=== PATIENT | female | born 1990 | race Two or more races ===

== ENCOUNTER 2017-01-15 16:03 | Inpatient (IN) ==
[2017-01-15] MEDS: LACTATED RINGERS 1,000 ML IV SCH ×2 (16:30→19:30)
[2017-01-15] MEDS ORDERED: BUTORPHANOL 2 MG/ML VIAL IV PRN (16:37)
[2017-01-15] MEDS ORDERED: ONDANSETRON 4 MG/2 ML VIAL IV PRN (16:37)
[2017-01-15] MEDS ORDERED: MEPERIDINE 50 MG/1 ML VIAL IM PRN (16:37)
[2017-01-15] MEDS ORDERED: AMPICILLIN INJ 2,000 MG in SODIUM CHLORIDE 0.9% 50 ML IV ONE (16:39)
[2017-01-15] MEDS ORDERED: AMPICILLIN 2,000 MG VIAL ONE (16:43)
[2017-01-15 16:56] LABS: Basophils % 0.2 % (0.0-0.8); Eosinophils % 0.1 % (0.00-10.9); Hematocrit 34.4 VOL% (35.7-47.0); Hemoglobin 11.5 GM/DL (12.0-16.0); Immature Granulocytes Absolute 0.18 #; Lymphocytes # 2.8 10*3/uL (1.4-4.0); Lymphocytes % 14.7 % (21.3-54.2); Mean Corpuscular HGB Conc 33.4 GM/DL (32-36); Mean Corpuscular Hemoglobin 30 PG (27-34); Mean Corpuscular Volume 88.4 FL (87-102); Mean Platelet Volume 9.6 FL (9.6-12.0); Monocytes # 1.6 10*3/uL (0.11-0.8); Monocytes % 8.3 % (1.7-12.7); Neutrophils # 14.2 10*3/uL (1.4-7.4); Neutrophils % 75.7 % (38.7-73.9); Platelet Count 271 T/CUMM (130-400); Red Blood Count 3.89 MC/CUMM (3.8-5.5); White Blood Count 18.7 T/CUMM (4-12)
[2017-01-15] MEDS ORDERED: PROMETHAZINE 25 MG/1 ML VIAL IM ONE (17:16)
[2017-01-15] MEDS ORDERED: ePHEDrine 50 MG/ML AMP IV PRN (17:16)
[2017-01-15] MEDS ORDERED: FAMOTIDINE 20 MG/2 ML VIAL IV ONE (17:16)
[2017-01-15] MEDS ORDERED: CITRIC ACID/SODIUM CITRATE 30 ML UDCUP PO ONE (17:16)
[2017-01-15] MEDS ORDERED: diphenhydrAMINE 50 MG/1 ML VIAL IV PRN ×2 (17:16)
[2017-01-15] MEDS ORDERED: hydrOXYzine HCL 25 MG/1 ML VIAL IM PRN (17:16)
[2017-01-15] MEDS ORDERED: LACTATED RINGERS 1,000 ML IV ONE (17:16)
[2017-01-15 17:24] LABS: Albumin 2.7 G/DL (3.4-5.0); Bilirubin,Total 0.5 MG/DL (0.2-1.0); Calcium 9.3 MG/DL (8.5-10.1); Potassium 3.6 MMOL/L (3.5-5.1); Total Protein 7.7 G/DL (6.4-8.3)
[2017-01-15] MEDS ORDERED: fentaNYL 2 MCG/ROPIV 0.2% EPID 150 ML EPIDURAL SCH (17:30)
[2017-01-15] MEDS ORDERED: OXYTOCIN/LR 20 UNIT/1,000 ML BAG IV PRN (19:47)
[2017-01-15] MEDS ORDERED: AMPICILLIN INJ 1,000 MG in SODIUM CHLORIDE 0.9% 50 ML IV SCH (21:00)
[2017-01-15 22:53] LABS: Cord Arterial Blood HCO3 20.9 MMOL/L
[2017-01-15 22:57] LABS: Cord Venous Blood HCO3 22.9 MMOL/L; Cord Venous Blood PCO2 44.1 MMHG; Cord Venous Blood PO2 33.5
[2017-01-15] MEDS ORDERED: ACETAMINOPHEN 500 MG TABLET PO PRN (23:03)
[2017-01-16] MEDS ORDERED: ONDANSETRON 4 MG/2 ML VIAL IV PRN (00:25)
[2017-01-16] MEDS ORDERED: ACETAMINOPHEN 325 MG TABLET PO PRN (00:25)
[2017-01-16] MEDS ORDERED: LACTATED RINGERS 1,000 ML IV SCH (00:25)
[2017-01-16] MEDS ORDERED: BISACODYL 10 MG SUPP RECTAL PRN (00:25)
[2017-01-16] MEDS: IBUPROFEN 800 MG TABLET PO PRN ×3 (00:40→22:16)
[2017-01-16] MEDS: MAGNESIUM HYDROXIDE SUSP 30 ML UDCUP PO PRN ×2 (01:28→22:13)
[2017-01-16] MEDS ORDERED: AMPICILLIN INJ 1,000 MG in SODIUM CHLORIDE 0.9% 50 ML IV SCH (01:30)
[2017-01-16 03:55] LABS: Basophils % 0.1 % (0.0-0.8); Eosinophils % 0.1 % (0.00-10.9); Hematocrit 27.9 VOL% (35.7-47.0); Hemoglobin 9.6 GM/DL (12.0-16.0); Immature Granulocytes % 1.1 %; Immature Granulocytes Absolute 0.24 #; Lymphocytes # 2.7 10*3/uL (1.4-4.0); Mean Corpuscular HGB Conc 34.4 GM/DL (32-36); Mean Corpuscular Hemoglobin 30 PG (27-34); Mean Corpuscular Volume 86.6 FL (87-102); Mean Platelet Volume 9.7 FL (9.6-12.0); Monocytes # 1.7 10*3/uL (0.11-0.8); Monocytes % 7.9 % (1.7-12.7); Neutrophils # 16.3 10*3/uL (1.4-7.4); Neutrophils % 77.8 % (38.7-73.9); Platelet Count 206 T/CUMM (130-400); Red Blood Count 3.22 MC/CUMM (3.8-5.5)
[2017-01-16 03:56] LABS: Apearance,Urine CLEAR (Clear); Bacteria,Urine Occasional /HPF (Few); Bilirubin,Urine Negative (Negative); Blood, Urine Moderate mg/dL (Negative); Glucose,Urine (UA) Negative (Negative); Ketones,Urine Negative (Negative); Mucus,Urine Occasional /LPF (Occasional); Nitrite,Urine Negative (Negative); Protein,Urine Negative; RBC,Urine 33 /HPF (0-4); Urine Color Yellow (Yellow); Urine Urobilinogen < 2.0 EU/DL (0.2-1.0); WBC,Urine 4 /HPF (0-6)
[2017-01-16 06:17] LABS: Band Neutrophils 10 % (0-10); Lymphocytes 15 % (20-55); Myelocytes 2 %; Platelet Estimate Normal; Segmented Neutrophils 72 % (50-85); Total Cells Counted 100
[2017-01-16] MEDS: MULTIVITAMIN (PRENATAL) TABLET PO SCH (08:40)
[2017-01-16] MEDS: DOCUSATE SODIUM 100 MG CAPSULE PO SCH ×2 (08:40→22:07)
[2017-01-16] MEDS: IRON (CARBONYL)/VIT C/B12/FA TABLET PO SCH (12:01)
[2017-01-17 07:49] VITALS: BP 88/59
[2017-01-17] MEDS: DOCUSATE SODIUM 100 MG CAPSULE PO SCH ×2 (07:54→09:21)
[2017-01-17] MEDS: MULTIVITAMIN (PRENATAL) TABLET PO SCH ×2 (07:54→09:21)
[2017-01-17] MEDS: IRON (CARBONYL)/VIT C/B12/FA TABLET PO SCH ×2 (07:54→09:21)
[2017-01-17] MEDS: IBUPROFEN 800 MG TABLET PO PRN (07:54)
[2017-01-17] MEDS: MAGNESIUM HYDROXIDE SUSP 30 ML UDCUP PO PRN (07:55)
[2017-01-17] MEDS ORDERED: DIPH/TET/ACEL PERT BOOSTER VACCINE 0.5 ML VIAL IM ONE (10:18)
== END 2017-01-17 11:55 | disposition home or self-care (01) | DRG 560 ==
LOC: N.LDOUT 16:03 → N.LD 16:05 → N.OB 01-16 00:10
PROVIDERS: ADMIT Obstetrics & Gynecology; ATTEND Obstetrics & Gynecology

== ENCOUNTER 2018-03-20 18:33 | Inpatient (IN) ==
[2018-03-20 19:03] LABS: Basophils % 0.2 % (0.0-0.8); Eosinophils # 0.1 10*3/uL (0.0-0.87); Eosinophils % 1.3 % (0.00-10.9); Hematocrit 41.7 VOL% (35.7-47.0); Hemoglobin 13.6 GM/DL (12.0-16.0); Immature Granulocytes % 0.3 %; Immature Granulocytes Absolute 0.03 #; Lymphocytes # 4.6 10*3/uL (1.4-4.0); Lymphocytes % 44.7 % (21.3-54.2); Mean Corpuscular HGB Conc 32.6 GM/DL (32-36); Mean Corpuscular Hemoglobin 29 PG (27-34); Mean Corpuscular Volume 90.3 FL (87-102); Mean Platelet Volume 10.5 FL (9.6-12.0); Monocytes # 0.6 10*3/uL (0.11-0.8); Neutrophils # 4.9 10*3/uL (1.4-7.4); Neutrophils % 47.5 % (38.7-73.9); Platelet Count 242 T/CUMM (130-400); Red Blood Count 4.62 MC/CUMM (3.8-5.5); Red Cell Distribution Width 12.7 % (9.3-17.3); White Blood Count 10.3 T/CUMM (4-12)
[2018-03-20 19:37] LABS: Alanine Aminotransferase 20 U/L (13-56); Albumin 3.6 G/DL (3.4-5.0); Alkaline Phosphatase 106 U/L (45-117); Amylase 55 U/L (25-115); Aspartate Amino Transferase 15 U/L (0-37); Bilirubin,Total < 0.39 MG/DL (0.2-1.0); Blood Urea Nitrogen 19 MG/DL (7-18); Calcium 8.9 MG/DL (8.5-10.1); Glucose 112 MG/DL (74-106); Potassium 3.6 MMOL/L (3.5-5.1); Sodium 136 MMOL/L (136-145); Total Protein 8.1 G/DL (6.4-8.3)
[2018-03-20 19:42] LABS: Apearance,Urine CLEAR (Clear); Bacteria,Urine Occasional /HPF (Few); Bilirubin,Urine Negative (Negative); Blood, Urine Negative (Negative); Glucose,Urine (UA) Negative (Negative); Ketones,Urine Negative (Negative); Mucus,Urine Occasional /LPF (Occasional); Nitrite,Urine Negative (Negative); Protein,Urine Negative; RBC,Urine 4 /HPF (0-4); Squamous Epithelial Cell,Urine Occasional /HPF (0-10); Urine Color Yellow (Yellow); Urine Specific Gravity 1.028 (1.001-1.035); Urine Urobilinogen < 2.0 EU/DL (0.2-1.0); WBC,Urine 1 /HPF (0-6)
[2018-03-20] MEDS ORDERED: ACETAMINOPHEN 325 MG TABLET PO PRN ×3 (20:32→20:48)
[2018-03-20] MEDS ORDERED: ONDANSETRON 4 MG/2 ML VIAL IV PRN ×2 (20:39→20:48)
[2018-03-20] MEDS ORDERED: PIPERACILLIN/TAZOBACTAM 3,375 MG in SODIUM CHLORIDE 0.9% 100 ML IV SCH (21:00)
[2018-03-20] MEDS ORDERED: DEXTROSE 5% NACL 0.45% 1,000 ML IV SCH ×3 (21:00)
[2018-03-20] MEDS: PIPERACILLIN/TAZOBACTAM 3,375 MG in SODIUM CHLORIDE 0.9% 100 ML IV SCH (21:05)
[2018-03-21] MEDS: PIPERACILLIN/TAZOBACTAM 3,375 MG in SODIUM CHLORIDE 0.9% 100 ML IV SCH ×3 (04:50→22:42)
[2018-03-21] MEDS: ONDANSETRON 4 MG/2 ML VIAL IV PRN ×2 (08:11→17:42)
[2018-03-21] MEDS ORDERED: PANTOPRAZOLE 40 MG TABLET PO SCH ×2 (09:00)
[2018-03-21] MEDS: PANTOPRAZOLE 40 MG TABLET PO SCH (09:06)
[2018-03-21] MEDS: LACTATED RINGERS 1,000 ML IV SCH ×2 (10:45→17:41)
[2018-03-21] MEDS ORDERED: LIDOCAINE 1%/EPI INJ 20 ML VIAL ONE (19:20)
[2018-03-21] MEDS ORDERED: BUPIVACAINE 0.25% /EPI 10 ML VIAL ONE (19:20)
[2018-03-21] MEDS ORDERED: PROPOFOL 200 MG/20 ML VIAL IV ONE (21:33)
[2018-03-21] MEDS ORDERED: SEVOFLURANE 1 UNIT/15 MINUTE INH ONE (21:33)
[2018-03-21] MEDS ORDERED: LACTATED RINGERS 1,000 ML IV ONE (21:34)
[2018-03-21] MEDS ORDERED: ACETAMINOPHEN 1,000 MG/100 ML VIAL IV ONE (21:34)
[2018-03-21] MEDS ORDERED: fentaNYL 100 MCG/2 ML VIAL ONE (21:34)
[2018-03-21] MEDS ORDERED: ROCURONIUM 100 MG/10 ML VIAL IV ONE (21:34)
[2018-03-21] MEDS ORDERED: GLYCOPYRROLATE 0.4 MG/2 ML VIAL ONE (21:34)
[2018-03-21] MEDS ORDERED: NEOSTIGMINE 10 MG/10 ML VIAL ONE (21:34)
[2018-03-21] MEDS ORDERED: ONDANSETRON 4 MG/2 ML VIAL ONE ×2 (21:34→21:36)
[2018-03-21] MEDS ORDERED: MIDAZOLAM 2 MG/2 ML VIAL ONE (21:34)
[2018-03-21] MEDS ORDERED: DEXAMETHASONE 10 MG/1 ML VIAL ONE (21:34)
[2018-03-21] MEDS ORDERED: KETOROLAC 30 MG/1 ML VIAL ONE (21:34)
[2018-03-21] MEDS ORDERED: MEPERIDINE 25 MG/1 ML VIAL ONE (21:35)
[2018-03-21] MEDS ORDERED: ONDANSETRON 4 MG/2 ML VIAL IV PRN (21:47)
[2018-03-21] MEDS ORDERED: MEPERIDINE 25 MG/1 ML VIAL IV PRN (21:47)
[2018-03-21] MEDS ORDERED: KETOROLAC 30 MG/1 ML VIAL IV ONE (22:46)
[2018-03-21] MEDS: MORPHINE 4 MG/1 ML VIAL IV PRN (23:05)
[2018-03-22] MEDS: LACTATED RINGERS 1,000 ML IV SCH ×3 (04:15→19:32)
[2018-03-22] MEDS: PIPERACILLIN/TAZOBACTAM 3,375 MG in SODIUM CHLORIDE 0.9% 100 ML IV SCH ×3 (04:50→21:08)
[2018-03-22] MEDS: KETOROLAC 15 MG/1 ML VIAL IV SCH ×4 (04:51→22:45)
[2018-03-22] MEDS: ONDANSETRON 4 MG/2 ML VIAL IV PRN ×2 (04:56→19:29)
[2018-03-22] MEDS: MORPHINE 4 MG/1 ML VIAL IV PRN ×2 (04:57→19:30)
[2018-03-22] MEDS: PANTOPRAZOLE 40 MG TABLET PO SCH (08:39)
[2018-03-23] MEDS: ONDANSETRON 4 MG/2 ML VIAL IV PRN (01:15)
[2018-03-23] MEDS: MORPHINE 4 MG/1 ML VIAL IV PRN (01:16)
[2018-03-23] MEDS: LACTATED RINGERS 1,000 ML IV SCH ×3 (02:57→10:00)
[2018-03-23] MEDS: PIPERACILLIN/TAZOBACTAM 3,375 MG in SODIUM CHLORIDE 0.9% 100 ML IV SCH (05:06)
[2018-03-23] MEDS: KETOROLAC 15 MG/1 ML VIAL IV SCH ×2 (05:07→10:58)
[2018-03-23] MEDS: PANTOPRAZOLE 40 MG TABLET PO SCH (08:13)
[2018-03-23] MEDS ORDERED: MAGNESIUM HYDROXIDE SUSP 30 ML UDCUP PO ONE (09:11)
[2018-03-23 12:17] VITALS: BP 108/66
== END 2018-03-23 12:59 | disposition home or self-care (01) | DRG 263 ==
LOC: N.ED 18:33 → N.EDINP 20:48 → N.3E 21:24
PROVIDERS: ADMIT Surgery; ATTEND Surgery
PROC: LAPCHOL (2018-03-21 20:20)

== ENCOUNTER 2019-09-25 16:22 | Inpatient (IN) ==
[2019-09-25] MEDS ORDERED: MEPERIDINE 50 MG/1 ML VIAL IV PRN (17:05)
[2019-09-25] MEDS ORDERED: ACETAMINOPHEN 325 MG TABLET PO PRN (17:05)
[2019-09-25] MEDS ORDERED: BUTORPHANOL 2 MG/ML VIAL IV PRN (17:05)
[2019-09-25 17:26] LABS: Basophils % 0.2 % (0.0-0.8); Eosinophils # 0.1 10*3/uL (0.0-0.87); Eosinophils % 0.5 % (0.00-10.9); Hematocrit 27.9 VOL% (35.7-47.0); Immature Granulocytes % 1.5 %; Lymphocytes # 2.7 10*3/uL (1.4-4.0); Lymphocytes % 20.6 % (21.3-54.2); Mean Corpuscular HGB Conc 32.3 GM/DL (32-36); Mean Corpuscular Volume 92.4 FL (87-102); Mean Platelet Volume 9.3 FL (9.6-12.0); Monocytes % 9.4 % (1.7-12.7); Neutrophils % 67.8 % (38.7-73.9); Platelet Count 200 T/CUMM (130-400); Red Blood Count 3.02 MC/CUMM (3.8-5.5)
[2019-09-25] MEDS ORDERED: MAGNESIUM SULF RIDER 100 ML IV ONE (17:39)
[2019-09-25 17:45] LABS: Albumin 2.2 G/DL (3.4-5.0); Bilirubin,Total 0.4 MG/DL (0.2-1.0); Calcium 8.4 MG/DL (8.5-10.1); Osmolality,Calculated 273.5 MOS/KG (273-304); Total Protein 6.7 G/DL (6.4-8.3)
[2019-09-25] MEDS ORDERED: MAGNESIUM SULF DRIP 40 GM/1,000 ML ML IV SCH (18:00)
[2019-09-25] MEDS: LACTATED RINGERS 1,000 ML IV SCH (18:08)
[2019-09-25] MEDS: ONDANSETRON 4 MG/2 ML VIAL IV PRN (18:12)
[2019-09-25] MEDS: AMPICILLIN INJ 2,000 MG in SODIUM CHLORIDE 0.9% 100 ML IV SCH (18:15)
[2019-09-25] MEDS: BETAMETH SODIUM PHOS/ACETATE 30 MG/5 ML VIAL IM SCH (18:18)
[2019-09-25 18:24] LABS: Barbiturates Screen,Urine Negative (Negative); Benzodiazepines Screen,Urine Negative (Negative); Cannabinoid Screen,Urine Positive (Negative); Opiate Screen,Urine Negative (Negative); Phencyclidine Screen,Urine Negative (Negative)
[2019-09-25 18:38] LABS: Amorphous Crystals,Urine Occasional /HPF (Few); Bilirubin,Urine Negative (Negative); Blood, Urine Small mg/dL (Negative); Glucose,Urine (UA) Negative (Negative); Ketones,Urine Negative (Negative); Mucus,Urine Many /LPF (Occasional); Nitrite,Urine Negative (Negative); Protein,Urine 30 MG/DL; RBC,Urine 5 /HPF (0-4); Squamous Epithelial Cell,Urine Occasional /HPF (0-10); Urine Appearance Slightly Hazy (Clear); Urine Color Amber (Yellow); Urine Specific Gravity 1.026 (1.001-1.035); WBC,Urine 22 /HPF (0-6)
[2019-09-25 18:43] LABS: RPR Confirm - Less than 1 yr REACTIVE (Nonreactive)
[2019-09-25] MEDS: ERYTHROMYCIN INJ 500 MG in SODIUM CHLORIDE 0.9% 100 ML IV SCH (19:10)
[2019-09-25] MEDS ORDERED: FAMOTIDINE 20 MG/2 ML VIAL IV ONE (19:28)
[2019-09-25] MEDS ORDERED: NALOXONE 0.4 MG/ML VIAL IV PRN (19:28)
[2019-09-25] MEDS ORDERED: LACTATED RINGERS 1,000 ML IV PRN (19:28)
[2019-09-25] MEDS ORDERED: CITRIC ACID/SODIUM CITRATE 30 ML UDCUP PO ONE (19:28)
[2019-09-25] MEDS: fentaNYL 2 MCG/ROPIV 0.2% EPID 100 ML EPIDURAL SCH (20:13)
[2019-09-25] MEDS: ePHEDrine 50 MG/ML VIAL IV PRN ×3 (20:17→20:28)
[2019-09-25] MEDS ORDERED: BICILLIN LA 1,200,000 UNIT/2 ML SYRINGE IM ONE ×3 (21:00→21:30)
[2019-09-25] MEDS ORDERED: BICILLIN LA 2,400,000 UNIT/4 ML SYRINGE IM ONE (21:00)
[2019-09-25 21:54] LABS: Bilirubin,Urine Negative (Negative); Blood, Urine Negative (Negative); Glucose,Urine (UA) Negative (Negative); Ketones,Urine 5 mg/dL (Negative); Mucus,Urine Occasional /LPF (Occasional); Nitrite,Urine Negative (Negative); Protein,Urine Negative; Squamous Epithelial Cell,Urine Occasional /HPF (0-10); Urine Appearance CLEAR (Clear); Urine Color Yellow (Yellow); Urine Specific Gravity 1.015 (1.001-1.035); Urine Urobilinogen < 2.0 EU/DL (0.2-1.0)
[2019-09-26] MEDS: AMPICILLIN INJ 2,000 MG in SODIUM CHLORIDE 0.9% 100 ML IV SCH ×3 (01:00→11:44)
[2019-09-26] MEDS: ERYTHROMYCIN INJ 500 MG in SODIUM CHLORIDE 0.9% 100 ML IV SCH ×2 (01:36→07:32)
[2019-09-26] MEDS: LACTATED RINGERS 1,000 ML IV SCH ×2 (03:35→17:09)
[2019-09-26] MEDS: ONDANSETRON 4 MG/2 ML VIAL IV PRN (05:08)
[2019-09-26] MEDS: BETAMETH SODIUM PHOS/ACETATE 30 MG/5 ML VIAL IM SCH (06:20)
[2019-09-26] MEDS: fentaNYL 2 MCG/ROPIV 0.2% EPID 100 ML EPIDURAL SCH (07:33)
[2019-09-26] MEDS ORDERED: OXYTOCIN/LR 20 UNIT/1,000 ML BAG IV ONE ×3 (10:38→12:52)
[2019-09-26] MEDS ORDERED: OXYTOCIN/LR 20 UNIT/1,000 ML BAG IV SCH (11:00)
[2019-09-26] MEDS ORDERED: miSOPROStoL 200 MCG TABLET ONE (11:48)
[2019-09-26] MEDS ORDERED: CARBOPROST TROMETHAMINE 250 MCG/ML AMP IM ONE (11:49)
[2019-09-26] MEDS ORDERED: METHYLERGONOVINE 0.2 MG/1 ML AMP ONE (11:49)
[2019-09-26] MEDS ORDERED: TRANEXAMIC ACID 1,000 MG/10 ML VIAL ONE (11:49)
[2019-09-26] MEDS ORDERED: METHYLERGONOVINE 0.2 MG/1 ML AMP IM ONE (12:00)
[2019-09-26] MEDS ORDERED: miSOPROStoL 200 MCG TABLET PO ONE (12:00)
[2019-09-26] MEDS ORDERED: KETOROLAC 30 MG/1 ML VIAL IV ONE (12:20)
[2019-09-26] MEDS ORDERED: LORazepam 2 MG/1 ML VIAL IV ONE ×2 (12:21)
[2019-09-26] MEDS ORDERED: IBUPROFEN 800 MG TABLET PO PRN (12:52)
[2019-09-26] MEDS ORDERED: BENZOCAINE 20%/MENTHOL 0.5% SPRAY 56 GM CAN TOP PRN (12:52)
[2019-09-26] MEDS ORDERED: ACETAMINOPHEN 325 MG TABLET PO PRN (12:52)
[2019-09-26] MEDS ORDERED: MEASLES/MUMPS/RUBELLA VACCINE 0.5 ML VIAL SUBCUT ONE (12:52)
[2019-09-26] MEDS ORDERED: BISACODYL 10 MG SUPP RECTAL PRN (12:52)
[2019-09-26] MEDS ORDERED: RHO(D) IMMUNE GLOBULIN 300 MCG SYRINGE IM ONE (12:52)
[2019-09-26] MEDS ORDERED: HYDROCORTISONE 2.5% RECTAL CREAM 30 GM TUBE TOP PRN (12:52)
[2019-09-26] MEDS ORDERED: DIPH/TET/ACEL PERT BOOSTER VACCINE 0.5 ML VIAL IM ONE (12:52)
[2019-09-26] MEDS ORDERED: WITCH HAZEL PADS 100/JAR TOP PRN (12:52)
[2019-09-26] MEDS ORDERED: oxyCODONE/ACETAMINOPHEN 5-325 MG TABLET PO PRN ×2 (12:52)
[2019-09-26] MEDS ORDERED: LANOLIN 50% CREAM 0.3 OZ TUBE TOP PRN (12:52)
[2019-09-26] MEDS ORDERED: ONDANSETRON 4 MG/2 ML VIAL IV PRN (12:52)
[2019-09-26 13:39] LABS: Ferritin 7.4 ng/ml (8-252)
[2019-09-26] MEDS ORDERED: AZITHROMYCIN 250 MG TABLET PO ONE (13:47)
[2019-09-26] MEDS: cefTRIAXone 2,000 MG in SYRINGE 1 EACH IV SCH (15:50)
[2019-09-26 16:42] LABS: Basophils % 0.2 % (0.0-0.8); Hematocrit 29.3 VOL% (35.7-47.0); Hemoglobin 8.8 GM/DL (12.0-16.0); Immature Granulocytes % 1.6 %; Immature Granulocytes Absolute 0.28 #; Lymphocytes # 1.8 10*3/uL (1.4-4.0); Lymphocytes % 10.1 % (21.3-54.2); Mean Corpuscular Volume 97.3 FL (87-102); Mean Platelet Volume 10.2 FL (9.6-12.0); Monocytes % 4.1 % (1.7-12.7); Platelet Count 200 T/CUMM (130-400); Red Blood Count 3.01 MC/CUMM (3.8-5.5); Red Cell Distribution Width 13.1 % (9.3-17.3); White Blood Count 17.4 T/CUMM (4-12)
[2019-09-26] MEDS: DOCUSATE SODIUM 100 MG CAPSULE PO SCH (17:10)
[2019-09-26] MEDS: ENOXAPARIN 40 MG/0.4 ML SYRINGE SUBCUT SCH (19:27)
[2019-09-26 19:33] VITALS: BP 104/60
[2019-09-27 05:13] LABS: Basophils % 0.1 % (0.0-0.8); Hematocrit 24.4 VOL% (35.7-47.0); Hemoglobin 7.8 GM/DL (12.0-16.0); Immature Granulocytes Absolute 0.64 #; Lymphocytes # 2.5 10*3/uL (1.4-4.0); Lymphocytes % 11.7 % (21.3-54.2); Mean Corpuscular Volume 91.7 FL (87-102); Mean Platelet Volume 9.6 FL (9.6-12.0); Monocytes % 9.4 % (1.7-12.7); Neutrophils % 75.8 % (38.7-73.9); Platelet Count 186 T/CUMM (130-400); Red Blood Count 2.66 MC/CUMM (3.8-5.5); Red Cell Distribution Width 13.1 % (9.3-17.3)
[2019-09-27 06:07] LABS: Band Neutrophils 15 % (0-10); Lymphocytes 11 % (20-55); Platelet Estimate Normal; Segmented Neutrophils 65 % (50-85); Total Cells Counted 100
[2019-09-27 06:08] LABS: Anisocytosis 1+
[2019-09-27] MEDS ORDERED: ENOXAPARIN 40 MG/0.4 ML SYRINGE SUBCUT SCH (07:00)
[2019-09-27] MEDS: AZITHROMYCIN 250 MG TABLET PO SCH (08:54)
[2019-09-27] MEDS: DOCUSATE SODIUM 100 MG CAPSULE PO SCH ×2 (08:55→21:10)
[2019-09-27] MEDS: cefTRIAXone 2,000 MG in SYRINGE 1 EACH IV SCH (16:22)
[2019-09-27] MEDS: FERROUS SULFATE 325 MG TABLET PO SCH ×2 (17:04→21:11)
[2019-09-27] MEDS: ENOXAPARIN 40 MG/0.4 ML SYRINGE SUBCUT SCH (19:25)
[2019-09-28] MEDS: DOCUSATE SODIUM 100 MG CAPSULE PO SCH (09:03)
[2019-09-28] MEDS: AZITHROMYCIN 250 MG TABLET PO SCH (09:04)
[2019-09-28] MEDS: FERROUS SULFATE 325 MG TABLET PO SCH (09:04)
== END 2019-09-28 11:25 | disposition home or self-care (01) | DRG 560 ==
LOC: N.LDOUT 16:22 → N.LD 16:23
PROVIDERS: ADMIT Obstetrics & Gynecology; ATTEND Obstetrics & Gynecology